=== PATIENT | female | born 1980 | race Caucasian/White ===

== ENCOUNTER 2021-11-15 12:24 | Outpatient (CLI) | payer OTHER, SELFPAY ==
--- NOTE | 2021-11-15 15:17 | NEURO ---
NCS and/or EMG Patient Report Ordering Doctor: Joel Bill DATE OF SERVICE: 11/15/21 Kait presents for electrodiagnostic testing of the lower limbs. She reports pain in the lower back radiating into the lower legs with numbness. Electrodiagnostic findings: Peroneal motor nerve demonstrates normal distal latency, amplitude and conduction velocity bilaterally. Normal tibial motor response bilaterally. Normal peroneal and tibial F waves. H-reflex normal bilaterally. Sensory responses are within normal limits. On needle EMG, all muscles tested in the lower limbs, as well as lumbar paraspinals, showed no evidence of denervation with normal motor unit action potentials. Electrodiagnostic impression: This is a normal electrodiagnostic study in the lower limbs. There is no electrodiagnostic evidence for peripheral neuropathy or lumbosacral radiculopathy.
== END 2021-11-15 23:59 | disposition home or self-care (01) ==
LOC: PSN 12:27
PROVIDERS: PCP Nurse Practitioner Family; Visit Provider Orthopaedic Surgery
DX: M54.16 Radiculopathy, lumbar region (principal); E66.01 Morbid (severe) obesity due to excess calories
CPT/HCPCS: 95886; 95913